=== PATIENT | female | born 1990 | race African-American/Black ===

== ENCOUNTER 2018-06-07 09:16 | Emergency (ER) | payer SELFPAY ==
[2018-06-07 09:25] VITALS: BMI 27.3
[2018-06-07] MEDS ORDERED: SODIUM CHLORIDE 1,000 ML IV STA (09:57)
--- NOTE | 2018-06-07 09:57 | PDOC ---
History of Present Illness <Marilynn Yusuf - Last Filed: 06/07/18 12:26> - History of Present Illness Initial Comments: 06/07/18 10:02 The patient is a 27 year old female, , currently 6 weeks based on last menstrual period of 04/22/18, with no significant PMH who presents to the emergency department with nausea and multiple episodes of nonbilious nonbloody vomit for the past six days. Patient states she has not been able to tolerate food or drink since the onset of these symptoms. Her last bowel movement was two days ago,which she notes was normal. Patient denies chills/fevers. Patient is also complaining of intermittent sternal non exertional non pleuritic chest pain since yesterday when she is vomiting. Patient denies taking any medication at home. Patient has not yet seen an [employer]. Patient reports she had similar vomiting in her last which required her to take medications throughout her . The patient denies shortness of breath, headache and dizziness. Denies fever, diarrhea and constipation. Denies dysuria, frequency, urgency and hematuria. Allergies: NKA Past surgical history: None reported. Social history: No reported alcohol, drug, or cigarette use. PCP: 06/07/18 13:23 <Jeannette Zavala - Last Filed: 06/07/18 13:35> - General Chief Complaint: Nausea/Vomiting Stated Complaint: STOMACH PAIN Time Seen by Provider: 06/07/18 09:32 Past History <Marilynn Yusuf - Last Filed: 06/07/18 12:26> - Past Medical History COPD: No - Suicide/Smoking/Psychosocial Hx Smoking History: Never smoked <Jeannette Zavala - Last Filed: 06/07/18 13:35> - Past Medical History Allergies/Adverse Reactions: Allergies Allergy/AdvReac Type Severity Reaction Status Date / Time No Known Allergies Allergy Verified 06/07/18 09:22 Home Medications: Ambulatory Orders NK [No Known Home Medication] 06/07/18 Review of Systems - Review of Systems Comments:: 06/07/18 10:04 GENERAL/CONSTITUTIONAL: No fever or chills. No weakness. HEAD, EYES, EARS, NOSE AND THROAT: No change in vision. No ear pain or discharge. No sore throat. GASTROINTESTINAL: (+) Nausea. (+) Vomiting. No diarrhea or constipation. GENITOURINARY: No dysuria, frequency, or change in urination. CARDIOVASCULAR: (+) Chest pain. No shortness of breath. RESPIRATORY: No cough, wheezing, or hemoptysis. MUSCULOSKELETAL: No joint or muscle swelling or pain. No neck or back pain. SKIN: No rash NEUROLOGIC: No headache, vertigo, loss of consciousness, or change in strength/ sensation. ENDOCRINE: No increased thirst. No abnormal weight change. HEMATOLOGIC/LYMPHATIC: No anemia, easy bleeding, or history of blood clots. ALLERGIC/IMMUNOLOGIC: No hives or skin allergy. <Lucas,Yomna - Last Filed: 06/07/18 13:35> *Physical Exam - Vital Signs Last Vital Signs Temp Pulse Resp BP Pulse Ox 98 F 84 18 105/73 99 06/07/18 09:23 06/07/18 09:23 06/07/18 09:23 06/07/18 09:23 06/07/18 09:23 <Marilynn Yusuf - Last Filed: 06/07/18 12:26> - Vital Signs Last Vital Signs Temp Pulse Resp BP Pulse Ox 98 F 84 18 105/73 99 06/07/18 09:23 06/07/18 09:23 06/07/18 09:23 06/07/18 09:23 06/07/18 09:23 - Physical Exam Comments: 06/07/18 10:05 GENERAL: Awake, alert, and fully oriented, in no acute distress HEAD: No signs of trauma EYES: PERRLA, EOMI, sclera anicteric, conjunctiva clear ENT: Auricles normal inspection, hearing grossly normal, nares patent, oropharynx clear without exudates. Moist mucosa NECK: Normal ROM, supple, no lymphadenopathy, JVD, or masses LUNGS: Breath sounds equal, clear to auscultation bilaterally. No wheezes, and no crackles HEART: (+) Tachycardic but regular, normal S1 and S2, no murmurs, rubs or gallops ABDOMEN: Soft, nontender, normoactive bowel sounds. No guarding, no rebound. No masses EXTREMITIES: Normal range of motion, no edema. No clubbing or cyanosis. No cords , erythema, or tenderness BACK: No midline spinal tenderness in cervical/thoracic/lumbar region NEUROLOGICAL: Normal speech, cranial nerves intact, negative pronator drift, 5/ 5 strength in all 4 extremities, normal sensation to light touch in all 4 extremities, normal cerebellar exam, normal gait, normal reflexes and tone SKIN: Warm, Dry, normal turgor, no rashes or lesions noted. <Berry Zavalabilly - Last Filed: 06/07/18 13:35> Heart Score/ECG Review #1 06/07/18 10:57 Twelve-lead EKG was performed and reviewed by me. Normal sinus rhythm, rate 80. Normal axis and intervals. No ST elevations. T wave inversion in leads 3 and V3. No previous EKGs to compare. <Berry Zavalabilly - Last Filed: 06/07/18 13:35> ED Treatment Course - LABORATORY CBC & Chemistry Diagram: 06/07/18 10:25 06/07/18 10:25 - ADDITIONAL ORDERS Additional order review: Laboratory Results 06/07/18 06/07/18 06/07/18 10:25 10:25 10:25 Sodium 134 L Potassium 4.1 Chloride 105 Carbon Dioxide 24 Anion Gap 6 L BUN 10 Creatinine 0.7 Creat Clearance w eGFR > 60 Random Glucose 85 Calcium 9.8 Magnesium 2.1 Total Bilirubin 1.0 AST 9 L ALT 19 Alkaline Phosphatase 56 Troponin I < 0.02 Total Protein 8.4 H Albumin 4.0 Lipase 111 Beta HCG, Quant 79706.1 Urine Color Tawanna Urine Appearance Slcloudy Urine pH 5.0 Ur Specific [place] 1.032 Urine Protein 2+ H Urine Glucose (UA) Negative Urine Ketones 2+ H Urine Blood 1+ H Urine Nitrite Negative Urine Bilirubin Negative Urine Urobilinogen Negative Ur Leukocyte Esterase Trace Urine WBC (Auto) 5 Urine RBC (Auto) 2 Ur Epithelial Cells Rare Urine Bacteria Rare Hyaline Casts 2 Urine Mucus Many Blood Type O POSITIVE Antibody Screen Negative 06/07/18 10:25 RBC 5.40 H MCV 79.7 L MCHC 32.4 RDW 12.6 MPV 8.9 Neutrophils % 76.0 Lymphocytes % 19.4 Monocytes % 4.2 Eosinophils % 0.1 Basophils % 0.3 - Medications Given in the ED: ED Medications Discontinued Medications Generic Name Dose Route Start Last Admin Trade Name Freq PRN Reason Stop Dose Admin Sodium Chloride 1,000 mls @ 1,000 mls/hr 06/07/18 09:57 06/07/18 10:31 Normal Saline - IV 06/07/18 10:56 1,000 mls/hr ASDIR STA Administration <Marilynn Yusuf - Last Filed: 06/07/18 12:26> - LABORATORY CBC & Chemistry Diagram: 06/07/18 10:25 06/07/18 10:25 - RADIOLOGY Radiology Studies Ordered: Category Date Time Status CHEST PA & LAT [RAD] Stat Radiology 06/07/18 09:50 Ordered <Jeannette Zavala - Last Filed: 06/07/18 13:35> Medical Decision Making - Medical Decision Making 06/07/18 12:26 Imaging: Chest XR Reported by: Bogdan Gil Impression: No evidence of active pulmonary disease. <Marilynn Yusuf - Last Filed: 06/07/18 12:26> - Medical Decision Making 06/07/18 09:55 27yo F presents to the ED with intractable N/V for 6 days. Vitals unremarkable. Exam with no abd ttp. No vag bleeding. Pt also c/o chest pain when vomiting, likely sore as pain occurs only when voniting. Unlikely boerhaave 's as pt is non toxic appearing, no fevers . Will check EKG/CXR. WIll also check labs, UA, and reassess. Plan -labs -CXR -EKG -UA -IVF -reassess 06/07/18 12:45 CXR clear UA with ketones, ordered D5NS Denies current CP labs otherwise normal Pt requesting US as she has not seen her OB yet Discussed with pt that without abd pain/vag bleeding or emergent reason to obtain US, this study can be done by her OB Will PO challenge her at this time and reassess 06/07/18 13:22 Pt tolerating food and drink Denies current CP [facility] Pt requests DC I discussed the physical exam findings, ancillary test results and final diagnoses with the patient. I answered all of the patient's questions. The patient was satisfied with the care received and felt comfortable with the discharge plan and treatment plan. The patient will call their primary care physician within 24 hours to arrange follow-up and will return to the Emergency Department with any new, persistent or worsening symptoms. <Jeannette Zavala - Last Filed: 06/07/18 13:35> *DC/Admit/Observation/Transfer <Marilynn Yusuf - Last Filed: 06/07/18 12:26> - Discharge Dispostion Decision to Admit order: No - Attestations Physician Attestion: 06/07/18 13:35 I, Dr. Jeannette Zavala MD, attest that this document has been prepared under my direction and personally reviewed by me in its entirety. I further attest, that it accurately reflects all work, treatment, procedures and medical decision -making performed by me. <Jeannette Zavala - Last Filed: 06/07/18 13:35> Diagnosis at time of Disposition: Nausea, Vomiting, Dehydration - Discharge Dispostion Disposition: HOME Condition at time of disposition: Improved - Patient Instructions Printed Discharge Instructions: DI for Vomiting -- Adult Additional Instructions[facility]. Take zofran as needed for nausea. Drink plenty of fluids and stay hydrated. Return to the emergency department if you have any new, worsening, or concerning symptoms.
[2018-06-07 10:53] LABS: URINE APPEARANCE SLCLOUDY; URINE BILIRUBIN NEGATIVE (<2.0 mg/dL); URINE COLOR AMBER; URINE GLUCOSE (UA) NEGATIVE (NEGATIVE); URINE KETONE 2+ (NEGATIVE); URINE LEUK ESTERASE TRACE (NEGATIVE); URINE NITRITE NEGATIVE (NEGATIVE); URINE PROTEIN 2+ (NEGATIVE); URINE UROBILINOGEN NEGATIVE mg/dL (0.2-1.0)
[2018-06-07 10:54] LABS: BASO % 0.3 % (0-2.0); EOS % 0.1 % (0-4.5); HEMOGLOBIN 13.9 GM/dL (10.7-15.3); LYMPH % 19.4 % (8-40); MCH 25.8 pg (25.7-33.7); MCHC 32.4 g/dl (32.0-36.0); MEAN CELL VOLUME 79.7 fl (80-96); MEAN PLT VOLUME 8.9 fl (7.5-11.1); MONO % 4.2 % (3.8-10.2); PLATELET COUNT 202 K/MM3 (134-434); RDW 12.6 % (11.6-15.6); WHITE BLOOD COUNT 10.9 K/mm3 (4.0-10.0)
[2018-06-07 10:59] LABS: EPI CELLS RARE /HPF (FEW); URINE BACTERIA RARE /hpf (NONE SEEN); URINE HYALINE CAST 2 /lpf; URINE MUCUS MANY
[2018-06-07] MEDS ORDERED: DEXTROSE 5%-NORMAL SALINE 1,000 ML IV SCH (11:00)
[2018-06-07 11:43] LABS: ALK PHOS 56 U/L (45-117); ANION GAP 6 MMOL/L (8-16); BLOOD UREA NITROGEN 10 mg/dL (7-18); CALCIUM 9.8 mg/dL (8.5-10.1); CHLORIDE 105 mmol/L (98-107); CO2 24 mmol/L (21-32); CREATININE 0.7 mg/dL (0.55-1.3); GLUCOSE,RANDOM 85 mg/dL (74-106); LIPASE 111 U/L (73-393); MAGNESIUM 2.1 mg/dL (1.8-2.4); POTASSIUM 4.1 mmol/L (3.5-5.1); SGOT/AST 9 U/L (15-37); SGPT/ALT 19 U/L (13-61); SODIUM 134 mmol/L (136-145); TOT PROT 8.4 g/dl (6.4-8.2)
--- NOTE | 2018-06-07 13:00 | EKG ---
Test Reason : Blood Pressure : / mmHG Vent. Rate : 080 BPM Atrial Rate : 080 BPM P-R Int : 166 ms QRS Dur : 074 ms QT Int : 374 ms P-R-T Axes : 042 001 014 degrees QTc Int : 431 ms NORMAL SINUS RHYTHM MINIMAL VOLTAGE CRITERIA FOR LVH, MAY BE NORMAL VARIANT BORDERLINE ECG NO PREVIOUS ECGS AVAILABLE Confirmed by RUTHY BONILLA, REHAN ([id number]) on 06/07/2018 12:59:51 PM Referred By: Confirmed By:REHAN BLISS MD
[2018-06-07 13:55] VITALS: BP 109/70; PULSE 80; TEMP 98.1
== END 2018-06-07 13:50 | disposition home or self-care (01) ==
LOC: JER 09:16
PROC: 3E0337Z Introduction of Electrolytic and Water Balance Substance into Peripheral Vein, Percutaneous Approach (ICD-10-PCS; principal; 2018-06-07)
DX: O26.891 Other specified pregnancy related conditions, first trimester (principal); Z3A.01 Less than 8 weeks gestation of pregnancy; R11.2 Nausea with vomiting, unspecified; E86.0 Dehydration
CPT/HCPCS: 36415; 71046-TC-FY; 80053; 81003; 81015; 83690; 83735; 84484; 84702; 85025; 86850; 86900; 86901; 87086; 93005; 93010; 99284-25; J7030

== ENCOUNTER 2019-02-22 14:31 | Emergency (ER) | payer OTHER ==
[2019-02-22 14:38] VITALS: TEMP 98.6; BMI 28.3
[2019-02-22] MEDS ORDERED: FAMOTIDINE 20 MG/50 ML IVPB 20 MG/50 ML MG IVPB ONE ×2 (14:39→15:07)
[2019-02-22] MEDS ORDERED: METOCLOPRAMIDE HCL INJECTION 10 MG/2 ML VIAL IVPB ONE (14:39)
[2019-02-22] MEDS ORDERED: SODIUM CHLORIDE 1,000 ML IV STA (14:39)
--- NOTE | 2019-02-22 14:40 | PDOC ---
Rapid Medical Evaluation Time Seen by Provider: 02/22/19 14:34 Medical Evaluation: Allergies Allergy/AdvReac Type Severity Reaction Status Date / Time No Known Allergies Allergy Verified 02/22/19 14:34 02/22/19 14:35 The patient is a 28 y/o F who presents to the ER for vomiting for two days. Pt states she is 10 weeks , LMP 4. She states she is unable to keep anything down. Admits to associated chest pain/burning. Denies vaginal bleeding , abdominal cramping Exam: ambulatory, NAD. AAOx3 Orders: labs, TVUS, IV, meds Pt to proceed to the ER for further evaluation Discharge Disposition - Diagnosis Vomiting Qualifiers: Vomiting type: unspecified Vomiting Intractability: non-intractable Nausea presence: with nausea Qualified Code(s): R11.2 - Nausea with vomiting, unspecified - Referrals - Patient Instructions - Post Discharge Activity
[2019-02-22] MEDS ORDERED: METOCLOPRAMIDE HCL INJECTION 10 MG/2 ML VIAL ONE (15:06)
[2019-02-22 15:14] LABS: BASO % 0.3 % (0-2.0); EOS % 0.2 % (0-4.5); HEMATOCRIT 40.7 % (32.4-45.2); HEMOGLOBIN 13.7 GM/dL (10.7-15.3); LYMPH % 18.6 % (8-40); MCH 25.9 pg (25.7-33.7); MCHC 33.6 g/dl (32.0-36.0); MEAN CELL VOLUME 77.1 fl (80-96); MEAN PLT VOLUME 8.5 fl (7.5-11.1); MONO % 7.3 % (3.8-10.2); NEUT % 73.6 % (42.8-82.8); PLATELET COUNT 204 K/MM3 (134-434); RBC 5.27 M/mm3 (3.60-5.2); RDW 12.6 % (11.6-15.6)
[2019-02-22] MEDS ORDERED: ONDANSETRON 4 MG/2 ML VIAL IVPUSH ONE (15:21)
[2019-02-22] MEDS ORDERED: DEXTROSE 5%-LACTATED RINGERS 1,000 ML IV SCH ×2 (15:30→18:15)
[2019-02-22] MEDS ORDERED: ONDANSETRON 4 MG/2 ML VIAL ONE (15:36)
--- NOTE | 2019-02-22 15:40 | PDOC ---
History of Present Illness - General Chief Complaint: Nausea/Vomiting Stated Complaint: TEN WEEKS IL/VOMITING Time Seen by Provider: 02/22/19 14:34 History Source: Patient Exam Limitations: No Limitations - History of Present Illness Initial Comments: Patient is 10 weeks . Reports worsening N/V over the past 2 weeks. Initially, only vomited once in the morning, but over the last few days, has been vomiting up to 15-20 times a day. Has not been able to keep any food or fluid down, reports subjective weight loss. She was given metoclopramide 10mg tablets from her OBGYN, but reports that this causes dizziness and restlessness without helping with her nausea whatsoever. Further reports significant heartburn symptoms, but denies any true CP or SOB. 02/22/19 15:20 Past History - Past Medical History Allergies/Adverse Reactions: Allergies Allergy/AdvReac Type Severity Reaction Status Date / Time No Known Allergies Allergy Verified 02/22/19 14:34 Home Medications: Ambulatory Orders Ondansetron [Ondansetron Odt] 8 mg PO PRN PRN #20 tab.rapdis 02/22/19 Pnv No.95/Ferrous Fum/Folic AC [ Vitamin Tablet] 1 each PO DAILY #30 tablet 02/22/19 COPD: No - Suicide/Smoking/Psychosocial Hx Smoking History: Never smoked Hx Alcohol Use: No Drug/Substance Use Hx: No Review of Systems - Review of Systems Able to Perform ROS?: Yes Is the patient limited Lithuanian proficient: No Constitutional: Yes: See HPI, Unintentional Wgt. Loss HEENTM: No: Symptoms Reported, See HPI, Eye Pain, Blurred Vision, Tearing, Recent change in vision, Double Vision, Cataracts, Ear Pain, Ocular Prothesis, Ear Discharge, Nose Pain, Nose Congestion, Tinnitus, Nose Bleeding, Hearing Loss , Throat Pain, Throat Swelling, Mouth Pain, Dental Problems, Difficulty Swallowing, Mouth Swelling, Other Respiratory: No: Symptoms reported, See HPI, Cough, Orthopnea, Shortness of Breath, SOB with Exertion, SOB at Rest, Stridor, Wheezing, Productive cough, Hemoptysis, Other Cardiac (ROS): No: Symptoms Reported, See HPI, Chest Pain, Edema, Irregular Heart Rate, Lightheadedness, Palpitations, Syncope, Chest Tightness, Other ABD/GI: Yes: Nausea, Vomiting : No: Symptoms Reported, See HPI, Burning, Dysuria, Discharge, Frequency, Flank Pain, Hematuria, Incontinence, Pain, Urgency, Testicular Mass, Testicular Swelling, Lesions, Testicular Pain, Other Musculoskeletal: No: Symptoms Reported, See HPI, Back Pain, Gout, Joint Pain, Joint Swelling, Muscle Pain, Muscle Weakness, Neck Pain, Joint Stiffness, Other Integumentary: No: Symptoms Reported, See HPI, Bruising, Change in Color, Change in Hair/Nails, Dryness, Erythema, Flushing, Lesions, Lumps, Pallor, Pruritus, Rash, Sweating, Other Neurological: No: Symptoms reported, See HPI, Headache, Numbness, Paresthesia, Pre-Existing Deficit, Seizure, Tingling, Tremors, Weakness, Unsteady Gait, Ataxia, Dizziness, Other Psychiatric: No: Anxiety, Depression, Frequent Crying, Stressors, Sleep Pattern Change, Emotional Problems, Mood Swings, Change in Appetite, Other Endocrine: No: Symptoms Reported, See HPI, Excessive Sweating, Flushing, Intolerance to Cold, Intolerance to Heat, Increased Hunger, Increased Thirst, Increased Urine, Unexplained Weight Gain, Unexplained Weight Loss, Change in Weight, Other Hematologic/Lymphatic: No: Symptoms Reported, See HPI, Anemia, Blood Clots, Easy Bleeding, Easy Bruising, Bleeding Diathesis, Lymph Node Abnormalities, Swollen Glands, Other *Physical Exam - Vital Signs Last Vital Signs Temp Pulse Resp BP Pulse Ox 98.6 F 105 H 18 114/80 100 02/22/19 14:35 02/22/19 14:35 02/22/19 14:35 02/22/19 14:35 02/22/19 14:35 - Physical Exam Respiratory/Chest: positive: Normal Breath Sounds Cardiovascular: positive: Regular Rhythm, Regular Rate Gastrointestinal/Abdominal: positive: Soft Heart Score/ECG Review - ECG Intrepretation Comment:: 02/22/19 16:08 EKG: NSR, 88bpm. T wave inversion in V2-V4. ED Treatment Course - LABORATORY CBC & Chemistry Diagram: 02/22/19 14:44 02/22/19 14:44 - ADDITIONAL ORDERS Additional order review: 02/22/19 14:44 RBC 5.27 H MCV 77.1 L MCHC 33.6 RDW 12.6 MPV 8.5 Neutrophils % 73.6 Lymphocytes % 18.6 Monocytes % 7.3 Eosinophils % 0.2 D Basophils % 0.3 - Medications Given in the ED: ED Medications Discontinued Medications Generic Name Dose Route Start Last Admin Trade Name Vasiliy PRN Reason Stop Dose Admin Diphenhydramine HCl 12.5 mg 02/22/19 14:39 02/22/19 15:30 Benadryl Injection - IVPUSH 02/22/19 14:40 12.5 mg ONCE ONE Administration Famotidine/Sodium Chloride 20 mg in 50 mls @ 100 mls/hr 02/22/19 14:39 15:15 Pepcid 20 Mg Premixed Ivpb - IVPB 02/22/19 15:08 100 mls/hr ONCE ONE Administration Metoclopramide HCl 10 mg 02/22/19 14:39 02/22/19 15:30 Reglan Injection - IVPB 02/22/19 14:40 10 mg ONCE ONE Administration Medical Decision Making - Medical Decision Making 02/22/19 15:41 Patient reports extreme N/V in s/o . Has failed oral metoclopramide. Will replete with D5LR X 2L and give Zofran 4mg IV push. Will check UA and get CMP to check electrolyte abnormalities. Also give Pepcid for heartburn. 02/22/19 17:46 CBC, BMP 02/22/19 14:44 02/22/19 14:44 CMP Sodium 135 mmol/L (136-145) L 02/22/19 14:44 Potassium 3.5 mmol/L (3.5-5.1) 02/22/19 14:44 Chloride 99 mmol/L (98-107) 02/22/19 14:44 Carbon Dioxide 25 mmol/L (21-32) 02/22/19 14:44 Anion Gap 11 MMOL/L (8-16) 02/22/19 14:44 BUN 5.5 mg/dL (7-18) L 02/22/19 14:44 Creatinine 0.8 mg/dL (0.55-1.3) 02/22/19 14:44 Est GFR (CKD-EPI)AfAm 117.10 02/22/19 14:44 Est GFR (CKD-EPI)NonAf 101.04 02/22/19 14:44 Random Glucose 99 mg/dL (74-106) 02/22/19 14:44 Calcium 9.3 mg/dL (8.5-10.1) 02/22/19 14:44 Total Bilirubin 0.6 mg/dL (0.2-1) 02/22/19 14:44 AST 14 U/L (15-37) L 02/22/19 14:44 ALT 22 U/L (13-61) 02/22/19 14:44 Alkaline Phosphatase 55 U/L (45-117) 02/22/19 14:44 Total Protein 7.9 g/dl (6.4-8.2) 02/22/19 14:44 Albumin 3.9 g/dl (3.4-5.0) 02/22/19 14:44 Labs reviewed. Demonstrates no elevated WBC, or other acute findings. Ultrasound reviewed. Demonstrates IUP with FHR, otherwises reassuring. Pt reassessed and noted to be tolerating PO and no longer nauseous. Pt requesting [employer] follow up and vitamins. Will discharge her with vitamins and zofran ODT PRN. Likely diagnosis: hyperemesis gravidarum *DC/Admit/Observation/Transfer Diagnosis at time of Disposition: Hyperemesis gravidarum Vomiting Qualifiers: Vomiting type: unspecified Vomiting Intractability: non-intractable Nausea presence: with nausea Qualified Code(s): R11.2 - Nausea with vomiting, unspecified - Discharge Dispostion Disposition: HOME Condition at time of disposition: Improved Decision to Admit order: No - Prescriptions Prescriptions: Ondansetron [Ondansetron Odt] 8 mg PO PRN PRN #20 tab.rapdis PRN Reason: Nausea Pnv No.95/Ferrous Fum/Folic AC [ Vitamin Tablet] 1 each PO DAILY #30 tablet - Referrals - Patient Instructions Printed Discharge Instructions: DI for Hyperemesis Gravidarum Additional Instructions: You were seen for nausea and vomiting. At this time, your blood work and ultrasound is reassuring. However, your nausea is likely from your . It is important that you take your daily vitamins. If you are nauseous, take zofran every 6 to 8 hours as needed. Drink plenty of fluids and rest. If you ever experience severe abdominal pain, persistent nausea despite medications, vaginal bleeding, you must return to the ER. - Post Discharge Activity
[2019-02-22 15:45] LABS: ALBUMIN 3.9 g/dl (3.4-5.0); BILIRUBIN,TOTAL 0.6 mg/dL (0.2-1); BLOOD UREA NITROGEN 5.5 mg/dL (7-18); CALCIUM 9.3 mg/dL (8.5-10.1); CREATININE 0.8 mg/dL (0.55-1.3); POTASSIUM 3.5 mmol/L (3.5-5.1); TOT PROT 7.9 g/dl (6.4-8.2)
--- NOTE | 2019-02-22 15:58 | PDOC ---
Documentation entered by Jackie Armenta SCRIBE, acting as scribe for Thi Aranda MD. Thi Aranda MD: This documentation has been prepared by the amnaibe, Jackie Armenta SCRIBE, under my direction and personally reviewed by me in its entirety. I confirm that the documentation accurately reflects all work, treatment, procedures, and medical decision making performed by me. Attending Attestation - Resident Resident Name: Erin Linton - ED Attending Attestation I have performed the following: I have examined & evaluated the patient, The case was reviewed & discussed with the resident, I agree w/resident's findings & plan, Exceptions are as noted - HPI HPI: 02/22/19 16:00 The patient is a 28 year old female(10 weeks ) with no significant past medical history who presents to the emergency department with nausea and vomiting for 2 weeks. She states that in the 2 weeks of her symptoms she has gone from vomiting 1x a day to about 15-25x a day. She reports some associated heartburn and weight loss. The patient states that she was prescribed medication for her symptoms with no apparent relief. The patient denies any fever, chills, diarrhea, constipation or urinary symptoms. She denies any viginal diascharge or bleeding. The patient states that she has similar symptoms in the past with her first . She denies any other symptoms or complaints. - Physicial Exam PE: GENERAL: Awake, alert, and fully oriented, in no acute distress HEAD: No signs of trauma EYES: PERRLA, EOMI, sclera anicteric, conjunctiva clear ENT: Auricles normal inspection, hearing grossly normal, nares patent, oropharynx clear without exudates. Dry mucosa NECK: Normal ROM, supple, no lymphadenopathy, JVD, or masses LUNGS: Breath sounds equal, clear to auscultation bilaterally. No wheezes, and no crackles HEART: Regular rate and rhythm, normal S1 and S2, no murmurs, rubs or gallops ABDOMEN: Soft, nontender, hyperactive bowel sounds. No guarding, no rebound. No masses EXTREMITIES: Normal range of motion, no edema. No clubbing or cyanosis. No cords, erythema, or tenderness NEUROLOGICAL: Cranial nerves II through XII grossly intact. Normal speech, normal gait. Motor and sensation intact SKIN: Warm, dry, normal turgor, no rashes or lesions noted. - Medical Decision Making 02/22/19 15:57 Pt with first trimester vomiting. She has not been responding to reglan at home. Will give a trial of zofran in ED. Will give IV fluids, at least 1 liter of D5LR. PO challenge when she improves. Likely DC home with zofran ODT. Heart Score/ECG Review - ECG Impressions Comment:: EKG read 16:01- NSR 88 bpm, no acute ST changes. Nonspecific T wave changes- flipped in V2-V4.
[2019-02-22 17:39] LABS: EPI CELLS 4.9 /HPF (0-5/HPF); HYALINE CASTS 13 /lpf (0-8); URINE APPEARANCE CLEAR; URINE BILIRUBIN NEGATIVE (NEGATIVE); URINE COLOR YELLOW; URINE GLUCOSE (UA) 3+ (NEGATIVE); URINE KETONE 4+ (NEGATIVE); URINE LEUK ESTERASE 1+ (NEGATIVE); URINE NITRITE NEGATIVE (NEGATIVE); URINE PROTEIN TRACE (NEGATIVE); URINE RBC 3 /hpf (0-4); URINE WBC 11 /hpf (0-5)
[2019-02-22 18:49] VITALS: BP 101/60; PULSE 96
--- NOTE | 2019-02-23 11:25 | EKG ---
Test Reason : Blood Pressure : / mmHG Vent. Rate : 088 BPM Atrial Rate : 088 BPM P-R Int : 166 ms QRS Dur : 072 ms QT Int : 348 ms P-R-T Axes : 051 024 026 degrees QTc Int : 421 ms NORMAL SINUS RHYTHM NONSPECIFIC T WAVE ABNORMALITY ABNORMAL ECG Confirmed by PHIL CARSON MD ([id number]) on 02/23/2019 11:24:58 AM Referred By: Confirmed By:PHIL CARSON MD
== END 2019-02-22 18:49 | disposition home or self-care (01) ==
LOC: JER 14:31
PROC: 3E033GC Introduction of Other Therapeutic Substance into Peripheral Vein, Percutaneous Approach (ICD-10-PCS; principal; 2019-02-22)
PROC: 3E0337Z Introduction of Electrolytic and Water Balance Substance into Peripheral Vein, Percutaneous Approach (ICD-10-PCS; 2019-02-22)
DX: O26.891 Other specified pregnancy related conditions, first trimester (principal); Z3A.10 10 weeks gestation of pregnancy; O21.0 Mild hyperemesis gravidarum; R11.2 Nausea with vomiting, unspecified
CPT/HCPCS: 36415; 76801-TC; 80053; 81003; 85025; 87086; 93005; 93010; 99283-25; J7030

== ENCOUNTER 2019-09-17 15:55 | Inpatient (IN) | payer OTHER ==
[2019-09-17] MEDS ORDERED: AMPICILLIN SODIUM 2 GM VIAL ONE (16:52)
[2019-09-17] MEDS ORDERED: AMPICILLIN - 2 GM in SODIUM CHLORIDE 100 ML IVPB ONE (17:15)
[2019-09-17 17:56] VITALS: BMI 29.5
[2019-09-17] MEDS ORDERED: DEXTROSE 5%-LACTATED RINGERS 1,000 ML IV SCH (18:45)
[2019-09-17 19:03] LABS: BASO % 0.2 % (0-2.0); EOS % 0.2 % (0-4.5); HEMATOCRIT 35.8 % (32.4-45.2); HEMOGLOBIN 11.7 GM/dL (10.7-15.3); LYMPH % 22.3 % (8-40); MCH 26.6 pg (25.7-33.7); MCHC 32.6 g/dl (32.0-36.0); MEAN CELL VOLUME 81.5 fl (80-96); MEAN PLT VOLUME 9.4 fl (7.5-11.1); MONO % 4.9 % (3.8-10.2); NEUT % 72.4 % (42.8-82.8); PLATELET COUNT 126 K/MM3 (134-434); RDW 15.5 % (11.6-15.6); WHITE BLOOD COUNT 9.7 K/mm3 (4.0-10.0)
[2019-09-17 19:15] LABS: BLOOD UREA NITROGEN 8.5 mg/dL (7-18); CALCIUM 8.3 mg/dL (8.5-10.1); CREATININE 0.5 mg/dL (0.55-1.3); POTASSIUM 3.6 mmol/L (3.5-5.1)
[2019-09-17 19:20] LABS: INR 0.96 (0.83-1.09); PROTHROMBIN TIME (PATIENT) 11.3 SEC (9.7-13.0)
[2019-09-17 19:22] LABS: ACTIVATED PTT 30.2 SECONDS (25.2-36.5)
[2019-09-17] MEDS ORDERED: OXYTOCIN 30 UNITS in 0.9% NS 30 UNIT/500 ML INFUS.BAG IVPB ONE (20:37)
--- NOTE | 2019-09-17 20:47 | HP ---
Past Medical History - Primary Care Physician PCP:: Sheryl Bateman - Admission Chief Complaint: 29yo P 1 @ 40.1 wks with BPP 6/8 in the office, with spontaneous contructions, no BV, no LOF, +FM History of Present Illness: 1. Transfer of care @ 15 wks 2. 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 margins - desmoid tumor 3. GBS pos - for Ampicillin in Labor 4. 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 Recived TDap and Flu vaccines History Source: Patient, Medical Record Limitations to Obtaining History: No Limitations - Past Medical History ...: 4 ...Para: 1 ( 7.2lb in [facility]) ...Term: 1 ...: 0 ...Spon : 0 ...Induced : 2 ...Multiple Gestation: 0 ...LMP: 12/13/18 ... Weeks Gestation by Dates: 39.5 ...EDC by Dates: 09/19/19 ...EDC by Sono: 09/16/19 - Past Surgical History Hx Myomectomy: No Hx Transabdominal Cerclage: No Additional Surgical History: 1. Left shoulder Rotator cuff. 2. Back/Spine mass excision - lamenectomy - Smoking History Smoking history: Never smoked Have you smoked in the past 12 months: No - Alcohol/Substance Use Hx Alcohol Use: No History of Substance Use: reports: None - Social History Usual Living Arrangement: Yes: With Spouse History of Recent Travel: No Home Medications - Allergies Allergies/Adverse Reactions: Allergies Allergy/AdvReac Type Severity Reaction Status Date / Time No Known Allergies Allergy Verified 09/17/19 17:13 - Home Medications Home Medications: Ambulatory Orders Pnv No.95/Ferrous Fum/Folic AC [ Vitamin Tablet] 1 each PO DAILY #30 tablet 02/22/19 Review of Systems - Review of Systems Constitutional: reports: No Symptoms Eyes: reports: No Symptoms HENT: reports: No Symptoms Neck: reports: No Symptoms Cardiovascular: reports: No Symptoms Respiratory: reports: No Symptoms Gastrointestinal: reports: No Symptoms Genitourinary: reports: Other (some contructions) Breasts: reports: No Symptoms Reported Musculoskeletal: reports: No Symptoms Integumentary: reports: No Symptoms Neurological: reports: No Symptoms Endocrine: reports: No Symptoms Hematology/Lymphatic: reports: No Symptoms Psychiatric: reports: No Symptoms Physical Exam - Maternity Vital Signs: Vital Signs Temperature 98.6 F 09/17/19 18:00 Pulse Rate 96 H 09/17/19 19:00 Respiratory Rate 09/17/19 19:00 Blood Pressure 92/65 09/17/19 19:00 O2 Sat by Pulse Oximetry (%) Constitutional: Yes: Well Nourished, No Distress, Calm Eyes: Yes: WNL, Conjunctiva Clear, EOM Intact HENT: Yes: WNL, Atraumatic, Normocephalic Neck: Yes: WNL, Supple, Trachea Midline Cardiovascular: Yes: WNL, Regular Rate and Rhythm Lungs: Clear to auscultation Breast(s): Yes: WNL - Abdominal Exam/OB Fundal Height: 39 (EFW 7.5lb) Number of Fetuses: Single Presentation: Vertex Contractions: Yes Regularity: Irregular Intensity: Mild Monitor Mode: External Heart Rate (range): 150's Heart Rate Location: Midline Category: I Accelerations: Uniform Decelerations: Variable (x1 in several hours) - Vaginal Exam/OB Vaginal Bleediing: No Speculum Exam: No Dilatation (cm): 3 Effacement (%): 50% Amniotic Membrane Status: Intact Presentation: Vertex/Position Station: -3 - Physical Exam Musculoskeletal: Yes: WNL Extremities: Yes: WNL Edema: No Integumentary: Yes: WNL ...Motor Strength: WNL Psychiatric: Yes: WNL, Alert, Oriented - Labs Lab Results: CBC, BMP 09/17/19 18:30 09/17/19 18:30 Assessment/Plan 29yo P1 @ 40.1 wks in early labor with non reassuring testing - BPP6/8 Admit to L&D NPO, LABS, GBS prophylaxis Adequate pelvis, EFW 7.2lb Augment with Pitocin Anesthesia as desired by patient Will AROM to further augment labor, when 2 doses of Ampicillin received and regular ctx pattern
[2019-09-17] MEDS ORDERED: OXYTOCIN 30 UNITS in 0.9% NS 30 UNIT/500 ML INFUS.BAG IVPB SCH (21:00)
[2019-09-17] MEDS ORDERED: AMPICILLIN SODIUM 1 GM VIAL ONE (21:12)
[2019-09-17] MEDS: AMPICILLIN - 1 GM in SODIUM CHLORIDE 100 ML IVPB SCH (21:15)
[2019-09-17] MEDS ORDERED: FENTANYL/BUPIVACAINE/NS/PF - PCEA - 50 ML DISP.SYRIN EP ONE (21:18)
[2019-09-17] MEDS: ELECTROLYTE-148 SOLN 1,000 ML IV SCH (21:20)
[2019-09-17] MEDS ORDERED: NALOXONE HCL 0.4 MG/ML VIAL IVPUSH PRN (21:25)
[2019-09-17] MEDS ORDERED: LIDO 2%/EPI 1:200000 PRESRVFRE (20 ML SDVIAL) ONE (21:28)
[2019-09-17] MEDS ORDERED: FENTANYL/BUPIVACAINE/NS/PF - PCEA - 50 ML DISP.SYRIN EP SCH (21:30)
--- NOTE | 2019-09-18 00:22 | PN ---
Progress Note, Labor Vaginal Exam #1 Labor Exam Date: 09/18/19 Labor Exam Time: 00:15 Heart Rate (range): 150 Dilatation: 5 Effacement (%): 80% Amniotic Membrane Status: Intact Presentation: Vertex/Position Station: -3 Remarks: MF well being reassuring s/p 2 doses of Ampicillin Regular constructions Comfortable with epidural AROM to augment labor
[2019-09-18] MEDS: AMPICILLIN - 1 GM in SODIUM CHLORIDE 100 ML IVPB SCH ×4 (01:15→14:01)
[2019-09-18] MEDS ORDERED: AMPICILLIN SODIUM 1 GM VIAL ONE ×3 (01:41→09:53)
[2019-09-18] MEDS ORDERED: FENTANYL/BUPIVACAINE/NS/PF - PCEA - 50 ML DISP.SYRIN EP ONE ×3 (01:52→10:22)
[2019-09-18] MEDS: ELECTROLYTE-148 SOLN 1,000 ML IV SCH (06:00)
--- NOTE | 2019-09-18 06:48 | PN ---
Progress Note, Labor Vaginal Exam #2 Labor Exam Date: 09/18/19 Labor Exam Time: 06:30 Heart Rate (range): 150 Dilatation: 8 Effacement (%): 90 Amniotic Membrane Status: Ruptured Presentation: Vertex/Position Station: -2 Remarks: TOCO ctx Q 4min spontaneous FHR Category 2 - occasional variable decel, and or early with good variability, overall reassuring currently off Pitocin, highest Pitocin amount 3mU/min Will reevaluate in 2 hours
--- NOTE | 2019-09-18 10:12 | PN ---
Progress Note, Labor Vaginal Exam #3 Labor Exam Date: 09/18/19 Labor Exam Time: 09:30 Heart Rate (range): 150 Dilatation: 9 Effacement (%): 90 Amniotic Membrane Status: Ruptured Presentation: Vertex/Position Station: -1 Remarks: Category 2 FHR with reassuring features Positive scalp stimulation Slow, but sufficient progress will continue to observe Pitocin @ 3mU/min
[2019-09-18] MEDS ORDERED: BUPIVACAINE HCL/PF 0.25% (2.5MG/ML) 10 ML VIAL ONE (11:15)
[2019-09-18] MEDS ORDERED: OXYTOCIN 20 UNITS in 0.9% NS 40 UNIT/2,000 ML INFUS.BAG IV ONE (12:35)
[2019-09-18] MEDS ORDERED: ceFAZolin SODIUM 1 GM VIAL ONE ×2 (12:38→12:39)
[2019-09-18] MEDS ORDERED: DEXAMETHASONE SOD PHOSPHATE 4 MG/1 ML VIAL ONE ×2 (12:38→12:39)
--- NOTE | 2019-09-18 12:39 | PN ---
Progress Note, Labor Vaginal Exam #4 Labor Exam Date: 09/18/19 Labor Exam Time: 12:20 Heart Rate (range): 150, Category 2 Dilatation: 9cm Effacement (%): 90 Amniotic Membrane Status: Ruptured Presentation: Vertex/Position Station: -1 Remarks: No cervical change in 3 hours Patient reported being in labor the first time for 4 days and pushing for 12 hours She had very traumatic expirience Patient consented for Primary c/section Risks/Benefits/Alternatives explained Further waiting, might lead to developing of Chorioamnionitis, and excessive bleeding @ c/section, This will further stress the fetus, whose FHR is Category 2 currently Risk of c/section includes: bleeding, injury to internal organs Currently c/section is a fine balance between the two odds She understands, consent signed
--- NOTE | 2019-09-18 12:40 | PN ---
Delivery - Delivery Section: Primary Type of Anesthesia: Epidural Episiotomy/Laceration: None EBL (cc): 1,000 Delivery, Single - Stages of Labor Date 1st Stage Initiatied: 09/17/19 Date of Delivery: 09/18/19 Time of Delivery: 13:34 Date Placenta Delivered: 09/18/19 Time Placenta Delivered: 13:35 Placenta: Yes: Expressed - Condition of Infant Forging Die Sinker/Staff Mine Warfare Officer Present: Yes Name: Massiel Solomon Infant Gender: Female Weight: 7 lb 4 oz Position: Right, OA - 1 Minute Total Score: 9 5 Minutes Total Score: 9 - [place] Feeding Plan Initial Plan: Exclusive throughout hospitalization Benefits of Exclusively reinforced: Yes
[2019-09-18] MEDS ORDERED: oxyCODONE HCL 5 MG TABLET PO PRN ×2 (12:41)
[2019-09-18] MEDS ORDERED: BENZOCAINE 28 GM HEMORRHOIDAL OINTMENT PR PRN (12:41)
[2019-09-18] MEDS ORDERED: METHYLERGONOVINE MALEATE 0.2 MG/1 ML AMP IM PRN (12:41)
[2019-09-18] MEDS ORDERED: IBUPROFEN 800 MG/8 ML IJ IVPB PRN (12:41)
[2019-09-18] MEDS ORDERED: diphenhydrAMINE HCL 25 MG CAPSULE (FP) PO PRN (12:41)
[2019-09-18] MEDS ORDERED: WITCH HAZEL 50% (TUCKS) 40 PAD/JAR PAD TP PRN (12:41)
[2019-09-18] MEDS ORDERED: BENZOCAINE 20% 57 GM BOTTLE TP PRN (12:41)
--- NOTE | 2019-09-18 12:41 | OP ---
Operative Note - Note: Operative Date: 09/18/19 Pre-Operative Diagnosis: 29yo P1 with failure to progress, Category 2 FHR Operation: Primary LST c/section Findings: Viable Female, 7.4lb, APGARs 9/9 Post-Operative Diagnosis: Same as Pre-op Surgeon: Sheryl Bateman Multilith Operator: Amauri Iverson Anesthesiologist/NURSE ASSESSOR: Lillie Crespo Anesthesia: General, Spinal Specimens Removed: Placenta Estimated Blood Loss (mls): 1,000 Drains, Volume Out (mls): 400 Fluid Volume Replaced (mls): 2,000 Operative Report Dictated: Yes
[2019-09-18] MEDS ORDERED: CITRIC ACID/SODIUM CITRATE 30 ML UNIT-DOSE CUP PO ONE (12:44)
[2019-09-18] MEDS ORDERED: OXYTOCIN 20 UNITS in 0.9% NS 20 UNIT/1,000 ML INFUS.BAG IV SCH (12:45)
[2019-09-18] MEDS ORDERED: DEXTROSE 5%-LACTATED RINGERS 1,000 ML IV SCH (12:45)
[2019-09-18] MEDS ORDERED: LIDO 2%/EPI 1:200000 PRESRVFRE (20 ML SDVIAL) ONE (12:46)
[2019-09-18] MEDS ORDERED: KETAMINE HCL 500 MG/10 ML VIAL ONE (13:28)
[2019-09-18] MEDS ORDERED: MIDAZOLAM HCL 2 MG/2 ML SINGLE DOSE VIAL ONE (13:28)
[2019-09-18] MEDS ORDERED: ONDANSETRON 4 MG/2 ML VIAL IVPUSH PRN (13:44)
[2019-09-18] MEDS ORDERED: DEXAMETHASONE SOD PHOSPHATE 4 MG/1 ML VIAL IVPUSH PRN (13:44)
[2019-09-18] MEDS ORDERED: HYDROmorphone *PCA* 10MG/50ML DISP.SYRIN PCA SCH (13:45)
[2019-09-18] MEDS ORDERED: KETOROLAC TROMETHAMINE 30 MG/1 ML VIAL ONE ×2 (13:52→14:08)
--- NOTE | 2019-09-18 14:38 | SURG ---
Surgery Dropper Tank Storage Note Dropper Tank Storage: Amauri Iverson PA-C Date of Service: 09/18/19 Diagnosis: Failure to progress in labor Procedure: Primary I was present for the entirety of the operative procedure. For further detail, please refer to operative report. Visit type - Case Type Case Type: ED Admission - Emergency Emergency Visit: Yes ED Registration Date: 09/17/19 Care time: The patient presented to the Emergency Department on the above date and was hospitalized for further evaluation of their emergent condition. - New patient This patient is new to me today: Yes Date on this admission: 09/18/19 - Critical Care Critical Care patient: No
[2019-09-18] MEDS ORDERED: HYDROmorphone *PCA* 10MG/50ML DISP.SYRIN ONE (14:48)
[2019-09-18 15:31] LABS: BASO % 0.1 % (0-2.0); HEMATOCRIT 32.1 % (32.4-45.2); HEMOGLOBIN 10.3 GM/dL (10.7-15.3); LYMPH % 3.2 % (8-40); MCH 26.2 pg (25.7-33.7); MEAN CELL VOLUME 81.7 fl (80-96); MEAN PLT VOLUME 9.2 fl (7.5-11.1); MONO % 4.6 % (3.8-10.2); NEUT % 92.1 % (42.8-82.8); PLATELET COUNT 115 K/MM3 (134-434); RBC 3.93 M/mm3 (3.60-5.2); RDW 15.6 % (11.6-15.6); WHITE BLOOD COUNT 15.9 K/mm3 (4.0-10.0)
[2019-09-18] MEDS ORDERED: OXYTOCIN 20 UNITS in 0.9% NS 20 UNIT/1,000 ML INFUS.BAG IV ONE (16:35)
[2019-09-18] MEDS: CEFAZOLIN 1 GM/D5W 1 GM/50 ML BAG IVPB SCH (17:33)
[2019-09-19] MEDS: CEFAZOLIN 1 GM/D5W 1 GM/50 ML BAG IVPB SCH (01:13)
[2019-09-19] MEDS: IBUPROFEN 600 MG TABLET (FP) PO PRN ×4 (05:58→17:58)
[2019-09-19] MEDS: SIMETHICONE 80 MG TAB.CHEW (FP) PO PRN ×4 (06:01→17:58)
--- NOTE | 2019-09-19 08:41 | OP ---
DATE OF OPERATION: 09/18/2019 PREOPERATIVE DIAGNOSIS: A 29-year-old para 1 with failure to progress, category 2 tracing, occiput posterior position. PROCEDURE PERFORMED: Primary low-segment transverse section. POSTOPERATIVE DIAGNOSIS: A 29-year-old para 1 with failure to progress, category 2 tracing, occiput posterior position. SURGEON: Sheryl Bateman M.D. STONE LAYOUT MARKER: Amauri Iverson PA-C ANESTHESIOLOGIST: Lillie Crespo M.D. ANESTHESIA: Spinal and IV sedation. DESCRIPTION OF PROCEDURE: After ensuring informed consent, the patient was brought to the operating room, where she was placed in the dorsal supine position with a left lateral tilt. After ensuring an adequate level of anesthesia, a Pfannenstiel incision was carried out with a scalpel and carried down to the level of the fascia with Bovie cautery. The fascia was incised in the midline and extended bilaterally with Bovie cautery. The fascia was incised with Bovie cautery and extended bilaterally Bovie cautery, dissected off the rectus abdominis with Bovie cautery, muscle split in the midline and brought down to the level of the symphysis. The peritoneum was tented and entered bluntly, dissected superiorly and inferiorly with Bovie cautery, with good visualization of underlying organs. The gutters were packed with lap sponges. The vesicouterine peritoneum was identified, tented and bladder flap and retracted with the lower edge of the Becka. A low uterine incision was created with the scalpel and extended bilaterally with bandage scissors. The infant's head was delivered atraumatically in occiput posterior position. The rest of the infant's body was delivered without any difficulty. The cord was clamped and cut. The was handed to awaiting pediatricians. Fluid was found to be cloudy. A piece of the cord was given for determination of blood gases. The placenta was expressed from the uterus. The uterus was cleared of clots and debris, and subsequently repaired with 0 Biosyn in running locking fashion. A 2nd imbricating layer was created with 0 Biosyn. Excellent hemostasis was achieved. A [id number] was placed on the left side of the uterine incision due to some oozing. Afterwards, excellent hemostasis was achieved. The lap sponges were removed. Bilateral normal tubes and ovaries noted. Abdomen irrigated and suctioned of clots and debris. Peritoneum repaired with 0 Biosyn. Muscle reapproximated on top of the peritoneum. Fascia repaired with 0 Vicryl in running fashion with 1 suture. Subcutaneous tissue closed with 0 Vicryl and skin closed with 4-0 Monocryl V-Loc stitch in running fashion. ESTIMATED BLOOD LOSS: 1000 mL. URINE OUTPUT: 400 mL. The patient received 2000 mL of IV fluids. Lap, sponge and instrument counts were correct x2. The patient was brought to the recovery room in stable condition. Mindy [id number]
[2019-09-19 09:04] LABS: BASO % 0.2 % (0-2.0); EOS % 0.2 % (0-4.5); HEMATOCRIT 29.8 % (32.4-45.2); HEMOGLOBIN 9.7 GM/dL (10.7-15.3); LYMPH % 15.9 % (8-40); MCH 26.5 pg (25.7-33.7); MCHC 32.5 g/dl (32.0-36.0); MEAN CELL VOLUME 81.4 fl (80-96); MEAN PLT VOLUME 9.1 fl (7.5-11.1); MONO % 6.3 % (3.8-10.2); NEUT % 77.4 % (42.8-82.8); PLATELET COUNT 130 K/MM3 (134-434); RBC 3.66 M/mm3 (3.60-5.2); RDW 15.6 % (11.6-15.6); WHITE BLOOD COUNT 16.5 K/mm3 (4.0-10.0)
--- NOTE | 2019-09-19 10:27 | PN ---
Progress Note (short form) - Note Progress Note: Anesthesia post op note POD#1. S/P under epidural with addition iv sedation, due to patchy coverage of the epidural. On FIRE APPARATUS ENGINEER post op. Pat seen and examined. sitting in the chair. Ambulating. Pain score 2-3/10. not been using the FIRE APPARATUS ENGINEER. No apparent post anesthesia complications. D/C FIRE APPARATUS ENGINEER. Adding PO tylenol.
[2019-09-19] MEDS ORDERED: PCA PUMP KEY 1 EACH EACH ONE (11:24)
[2019-09-19] MEDS ORDERED: BISACODYL 10 MG SUPP.RECT RC PRN (12:41)
[2019-09-19] MEDS: ACETAMINOPHEN 325 MG TABLET (FP) PO PRN ×2 (13:57→17:59)
--- NOTE | 2019-09-19 18:48 | PN ---
Post Progress Note - Subjective Subjective: Patient without acute complaints. Reports tolerating oral intake without nausea or vomiting. Ambulating without dizziness. Denies fevers or chills. Pain well controlled with oral pain medication. Pumping/breast feeding without issue. Passing flatus, no BM. Post Day: 1 Type of Delivery: Primary C/S Vital Signs: Vital Signs Temperature 98.2 F 09/19/19 09:21 Pulse Rate 90 09/19/19 09:21 Respiratory Rate 18 09/19/19 09:21 Blood Pressure 102/63 09/19/19 09:21 O2 Sat by Pulse Oximetry (%) 97 09/18/19 19:00 Breast Exam: Yes: Soft Uterus: Yes: Fundus Firm, Fundus below umbilicus Incision: Yes: Dressing dry and intact Abdomen/GI: Yes: Abdomen soft Lochia: Yes: Rubra Lochia, amount: Small Extremities: Yes: Calves non-tender Perineum: Yes: Intact Activity: Ambulating - Labs Labs: CBC WBC 16.5 K/mm3 (4.0-10.0) H 09/19/19 08:44 RBC 3.66 M/mm3 (3.60-5.2) 09/19/19 08:44 Hgb 9.7 GM/dL (10.7-15.3) L 09/19/19 08:44 Hct 29.8 % (32.4-45.2) L 09/19/19 08:44 MCV 81.4 fl (80-96) 09/19/19 08:44 MCH 26.5 pg (25.7-33.7) 09/19/19 08:44 MCHC 32.5 g/dl (32.0-36.0) 09/19/19 08:44 RDW 15.6 % (11.6-15.6) 09/19/19 08:44 Plt Count 130 K/MM3 (134-434) L 09/19/19 08:44 MPV 9.1 fl (7.5-11.1) 09/19/19 08:44 Absolute Neuts (auto) 12.7 K/mm3 (1.5-8.0) H 09/19/19 08:44 Neutrophils % 77.4 % (42.8-82.8) 09/19/19 08:44 Neutrophils % (Manual) 88.1 % (42.8-82.8) H 09/18/19 15:00 Band Neutrophils % 3.0 % 09/18/19 15:00 Lymphocytes % 15.9 % (8-40) D 09/19/19 08:44 Lymphocytes % (Manual) 3.0 % (8-40) L 09/18/19 15:00 Monocytes % 6.3 % (3.8-10.2) 09/19/19 08:44 Monocytes % (Manual) 4 % (3.8-10.2) 09/18/19 15:00 Eosinophils % 0.2 % (0-4.5) D 09/19/19 08:44 Eosinophils % (Manual) 0.0 % (0-4.5) 09/18/19 15:00 Basophils % 0.2 % (0-2.0) 09/19/19 08:44 Basophils % (Manual) 0.0 % (0-2.0) 09/18/19 15:00 Myelocytes % (Man) 0 % (0-2) 09/18/19 15:00 Promyelocytes % (Man) 0 % (0-2) 09/18/19 15:00 Blast Cells % (Manual) 0 % (0-0) 09/18/19 15:00 Nucleated RBC % 0 % (0-0) 09/19/19 08:44 Metamyelocytes 2 % (0-2) 09/18/19 15:00 Assessment/Plan 29yo P1 s/p primary LT C/S, doing well stable, afebrile. care instructions reviewed. Continue routine postop care. Ambulation encouraged.
[2019-09-20] MEDS: IBUPROFEN 600 MG TABLET (FP) PO PRN ×4 (03:45→19:36)
[2019-09-20] MEDS: SIMETHICONE 80 MG TAB.CHEW (FP) PO PRN ×4 (03:45→19:36)
[2019-09-20] MEDS: ACETAMINOPHEN 325 MG TABLET (FP) PO PRN ×4 (03:46→19:36)
--- NOTE | 2019-09-20 09:43 | PN ---
Post Progress Note - Subjective Subjective: Patient without acute complaints. Reports tolerating oral intake without nausea or vomiting. Ambulating without dizziness. Denies fevers or chills. Pain well controlled with oral pain medication. without difficulty, denies nipple pain or tenderness Passing flatus. Post Day: 2 Type of Delivery: Primary C/S Vital Signs: Vital Signs Temperature 97.8 F 09/19/19 21:03 Pulse Rate 98 H 09/19/19 21:03 Respiratory Rate 20 09/19/19 21:03 Blood Pressure 104/65 09/19/19 21:03 O2 Sat by Pulse Oximetry (%) 97 09/18/19 19:00 Breast Exam: Yes: Engorged Uterus: Yes: Fundus Firm Incision: Yes: Sutures intact. No: Redness, Oozing Abdomen/GI: Yes: Abdomen soft, Abdominal Distention (mild soft), Tender (mild incisional), Passing flatus, Tolerating PO Lochia: Yes: Rubra Lochia, amount: Moderate Extremities: Yes: Calves non-tender, Edema (trace) Activity: Ambulating - Labs Labs: CBC WBC 16.5 K/mm3 (4.0-10.0) H 09/19/19 08:44 RBC 3.66 M/mm3 (3.60-5.2) 09/19/19 08:44 Hgb 9.7 GM/dL (10.7-15.3) L 09/19/19 08:44 Hct 29.8 % (32.4-45.2) L 09/19/19 08:44 MCV 81.4 fl (80-96) 09/19/19 08:44 MCH 26.5 pg (25.7-33.7) 09/19/19 08:44 MCHC 32.5 g/dl (32.0-36.0) 09/19/19 08:44 RDW 15.6 % (11.6-15.6) 09/19/19 08:44 Plt Count 130 K/MM3 (134-434) L 09/19/19 08:44 MPV 9.1 fl (7.5-11.1) 09/19/19 08:44 Absolute Neuts (auto) 12.7 K/mm3 (1.5-8.0) H 09/19/19 08:44 Neutrophils % 77.4 % (42.8-82.8) 09/19/19 08:44 Neutrophils % (Manual) 88.1 % (42.8-82.8) H 09/18/19 15:00 Band Neutrophils % 3.0 % 09/18/19 15:00 Lymphocytes % 15.9 % (8-40) D 09/19/19 08:44 Lymphocytes % (Manual) 3.0 % (8-40) L 09/18/19 15:00 Monocytes % 6.3 % (3.8-10.2) 09/19/19 08:44 Monocytes % (Manual) 4 % (3.8-10.2) 09/18/19 15:00 Eosinophils % 0.2 % (0-4.5) D 09/19/19 08:44 Eosinophils % (Manual) 0.0 % (0-4.5) 09/18/19 15:00 Basophils % 0.2 % (0-2.0) 09/19/19 08:44 Basophils % (Manual) 0.0 % (0-2.0) 09/18/19 15:00 Myelocytes % (Man) 0 % (0-2) 09/18/19 15:00 Promyelocytes % (Man) 0 % (0-2) 09/18/19 15:00 Blast Cells % (Manual) 0 % (0-0) 09/18/19 15:00 Nucleated RBC % 0 % (0-0) 09/19/19 08:44 Metamyelocytes 2 % (0-2) 09/18/19 15:00 Assessment/Plan 29 yo POD # 2 s/p primary CD, afebrile, vital signs stable, mild asymptomatic anemia, doing well 1. Continue routine postoperative care. 2. Encourage ambulation and incentive spirometer use 3. Continue oral pain medication 4. Anticipate discharge home postoperative day #3 or #4
--- NOTE | 2019-09-20 17:17 | PATH ---
Surgical Pathology Report Patient Name: CAMRON PACHECO [facility]. Rec. #: [id number] /Age/Gender: 1990 (Age: 29) / F Account: [id number] Location: [facility] OBS/HYDROBLASTER Taken: 09/18/2019 Received: 09/19/2019 Reported: 09/20/2019 Physicians: Sheryl Bateman M.D. Specimen(s) Received PLACENTA Clinical History , 39.6 weeks, failure to progress Final Diagnosis PLACENTA: THIRD TRIMESTER PLACENTA WITH ACUTE CHORIOAMNIONITIS. TRIVASCULAR CORD WITH ACUTE FUNISITIS. Electronically Signed Verónica Lantigua M.D. Gross Description The specimen is received fresh labeled placenta and is a 421 gram, 16.0 x 14.0 x 2.2 cm. placenta with attached membranes and umbilical cord. The attached membranes are zaman, translucent with focal opacities and insert marginally. The umbilical cord measures 20 cm. in length and averages 1 cm. in diameter. The cord inserts eccentrically, 2.5 cm. to the nearest margin. No true knots or strictures are identified. Cut surface of the umbilical cord reveals 3 vessels. The surface is slaughter-blue with minimal fibrin deposition and appropriate caliber vessels. The maternal surface is red-brown with focal defects. Sectioning reveals red-brown, spongy parenchyma. No lesions are identified. Reports Analysis Manager sections are submitted in three cassettes as follows: 1- membrane rolls and umbilical cord; 2-3- full thickness sections of placenta. /09/19/2019 saudi/09/19/2019
[2019-09-20] MEDS ORDERED: SENNOSIDES/DOCUSATE COMBO (SENNA PLUS) TABLET (UD) PO PRN (22:00)
[2019-09-21] MEDS: SIMETHICONE 80 MG TAB.CHEW (FP) PO PRN (07:58)
[2019-09-21] MEDS: IBUPROFEN 600 MG TABLET (FP) PO PRN (07:58)
[2019-09-21] MEDS: ACETAMINOPHEN 325 MG TABLET (FP) PO PRN (07:59)
--- NOTE | 2019-09-21 08:01 | DS ---
Physical Exam-LEHR ATTENDANT Vital Signs: Vital Signs Temperature 97.7 F 09/20/19 22:00 Pulse Rate 78 09/20/19 22:00 Respiratory Rate 18 09/20/19 22:00 Blood Pressure 115/74 09/20/19 22:00 O2 Sat by Pulse Oximetry (%) 97 09/18/19 19:00 Constitutional: Yes: Well Nourished, No Distress, Calm Eyes: Yes: WNL, Conjunctiva Clear, EOM Intact HENT: Yes: WNL, Atraumatic, Normocephalic Neck: Yes: WNL, Supple, Trachea Midline Cardiovascular: Yes: WNL, Regular Rate and Rhythm Respiratory: Yes: WNL, Regular, CTA Bilaterally Gastrointestinal: Yes: WNL ...Rectal Exam: Yes: WNL Renal/: Yes: WNL ....Post : Yes: Uterus firm, Uterus non-tender, Slight lochia rubra Breast(s): Yes: WNL Musculoskeletal: Yes: WNL Extremities: Yes: WNL Edema: LLE: Trace, RLE: Trace Integumentary: Yes: WNL Wound/Incision: Yes: Clean/Dry, Well Approximated, Sutures Intact, Steri Strips Neurological: Yes: WNL, Alert, Oriented ...Motor Strength: WNL Psychiatric: Yes: WNL, Alert, Oriented Labs: CBC, BMP 09/19/19 08:44 09/17/19 18:30 Delivery - Delivery Section: Primary Type of Anesthesia: Epidural Episiotomy/Laceration: None EBL (cc): 1,000 Delivery, Single - Stages of Labor Date 1st Stage Initiatied: 09/17/19 Time 1st Stage Initiated: 17:00 Date of Delivery: 09/18/19 Time of Delivery: 13:34 Time Placenta Delivered: 13:35 Placenta: Yes: Expressed - Condition of Infant Field Sales Representative/Analog Circuit Designer Present: Yes Name: Massiel Solomon Gender: Female Weight: 7 lb 4 oz Position: Right, OA Total Hours ROM (Hrs/Mins): 13hr 20min - 1 Minute Total Score: 9 5 Minutes Total Score: 9 - [place] Feeding Plan Initial Plan: Exclusive throughout hospitalization Benefits of Exclusively reinforced: Yes Discharge Summary Problems reviewed: Yes Reason For Visit: LABOR ADMIT INDUCTION Procedures: Principal: primary LST c/s Hospital Course: anemia Health Concerns: anemia Plan of Treatment: iron, vit Goals: HB 12 Condition: Good - Instructions Diet, Activity, Other Instructions: regular diet, no intercourse , follow up office 1 week, if fever, pain, heavy vaginal bleeding call MD Referrals: Geronimo Nichols MD [Staff Physician] - Disposition: HOME - Home Medications Comprehensive Discharge Medication List: Ambulatory Orders Pnv No.95/Ferrous Fum/Folic AC [ Vitamin Tablet] 1 each PO DAILY #30 tablet 02/22/19 Ibuprofen [Motrin -] 600 mg PO TID #90 tablet 09/21/19
[2019-09-21 08:59] LABS: BASO % 0.2 % (0-2.0); EOS % 1.7 % (0-4.5); HEMATOCRIT 27.5 % (32.4-45.2); HEMOGLOBIN 9.1 GM/dL (10.7-15.3); MCH 26.6 pg (25.7-33.7); MEAN CELL VOLUME 80.6 fl (80-96); MEAN PLT VOLUME 8.6 fl (7.5-11.1); MONO % 3.8 % (3.8-10.2); NEUT % 75.3 % (42.8-82.8); PLATELET COUNT 143 K/MM3 (134-434); RBC 3.41 M/mm3 (3.60-5.2); RDW 15.4 % (11.6-15.6); WHITE BLOOD COUNT 8.6 K/mm3 (4.0-10.0)
[2019-09-21 09:55] VITALS: BP 118/73; PULSE 71; TEMP 97.6
== END 2019-09-21 15:40 | disposition home or self-care (01) | DRG 788 ==
LOC: JLDR 15:55 → J3W 09-18 16:55
PROVIDERS: ADMIT Obstetrics & Gynecology; ATTEND Obstetrics & Gynecology
PROC: 10D00Z1 Extraction of Products of Conception, Low, Open Approach (ICD-10-PCS; principal; 2019-09-18)
DX: O48.0 Post-term pregnancy (principal); O32.4XX0 Maternal care for high head at term, not applicable or unspecified; Z3A.40 40 weeks gestation of pregnancy; Z37.0 Single live birth
CPT/HCPCS: 36415; 36600; 80048; 82803; 85025; 85384; 85610; 85730; 86593; 86850; 86900; 86901

== ENCOUNTER 2020-09-15 14:09 | Emergency (ER) | payer OTHER ==
[2020-09-15 14:48] VITALS: BP 116/77; PULSE 110; TEMP 100.1; BMI 28.3
== END 2020-09-15 16:12 | disposition home or self-care (01) ==
LOC: JER 14:09
DX: R05 Cough (principal)
CPT/HCPCS: 99284-25; C9803; U0003

== ENCOUNTER 2022-09-28 08:58 | Emergency (ER) | payer OTHER ==
[2022-09-28 09:14] VITALS: BP 127/78; PULSE 87; RESP 18; TEMP 98.4; BMI 29.8
[2022-09-28] MEDS ORDERED: ACETAMINOPHEN 1000 MG/100 ML BAG IVPB ONE (09:52)
[2022-09-28] MEDS ORDERED: ACETAMINOPHEN INJECTION 100 ML IVPB ONE (10:16)
== END 2022-09-28 14:05 | disposition home or self-care (01) ==
LOC: JER 08:58
PROC: 3E033GC Introduction of Other Therapeutic Substance into Peripheral Vein, Percutaneous Approach (ICD-10-PCS; principal; 2022-09-28)
DX: M54.50 Low back pain, unspecified (principal)
CPT/HCPCS: 72132-TC; 84703; 99285-25; Q9967

== ENCOUNTER 2024-07-05 09:10 | Emergency (ER) | payer OTHER ==
[2024-07-05 09:17] VITALS: BP 121/82; PULSE 85; RESP 18; TEMP 97.8; BMI 29.2
== END 2024-07-05 12:44 | disposition left against medical advice (07) ==
LOC: JER 09:10
DX: R07.89 Other chest pain (principal)
CPT/HCPCS: 71046-TC-FY; 93005; 93010; 99284-25

== ENCOUNTER 2025-02-12 20:24 | Emergency (ER) | payer OTHER ==
[2025-02-12 20:32] VITALS: BP 121/76; PULSE 85; RESP 16; TEMP 98.4; BMI 29.2
[2025-02-12] MEDS ORDERED: ALBUTEROL SO4 2.5/IPRATROPIUM 0.5 INH SOL 3 ML VIAL.NEB. NEB ONE (21:49)
[2025-02-12] MEDS: ALBUTEROL SO4 2.5/IPRATROPIUM 0.5 INH SOL 3 ML VIAL.NEB. NEB ONE (21:53)
[2025-02-12] MEDS ORDERED: diazePAM 2 MG TABLET ONE (22:22)
[2025-02-12] MEDS: diazePAM 2 MG TABLET PO ONE (22:23)
[2025-02-12 23:21] LABS: HCV DIAGNOSTIC IN-HOUSE W/RFLX NON-REACTIVE (NONREACTIVE); HIV INTERPRETATION NEGATIVE (NEGATIVE)
== END 2025-02-12 23:00 | disposition home or self-care (01) ==
LOC: JERFT 20:24
PROC: 3E0F7GC Introduction of Other Therapeutic Substance into Respiratory Tract, Via Natural or Artificial Opening (ICD-10-PCS; principal; 2025-02-12)
DX: F41.9 Anxiety disorder, unspecified (principal); R06.02 Shortness of breath; R07.89 Other chest pain
CPT/HCPCS: 36415; 71046-TC-FY; 84484; 86803; 87389; 93005; 93010; 94640; 99285-25